=== PATIENT | female | born 1990 | race Caucasian/White ===

== ENCOUNTER 2016-10-24 13:41 | Emergency (ER) | payer BC ==
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
[2016-10-24 14:01] VITALS: BP 132/88; PULSE 76; TEMP 97.9; BMI 48.1
--- NOTE | 2016-10-24 14:34 | DIRPT ---
CLINICAL DATA: Injury. Pain. EXAM: RIGHT WRIST - COMPLETE 3+ VIEW COMPARISON: None. FINDINGS: There is no evidence of fracture or dislocation. There is no evidence of arthropathy or other focal bone abnormality. Soft tissues are unremarkable. IMPRESSION: Negative. Electronically Signed By: Binu Álvarez M.D. On: 10/24/2016 14:32
== END 2016-10-24 15:36 | disposition home or self-care (01) ==
LOC: EDMC 13:41
DX: S60.211A Contusion of right wrist, initial encounter (principal); W22.09XA Striking against other stationary object, initial encounter; Y93.89 Activity, other specified; Y92.512 Supermarket, store or market as the place of occurrence of the external cause
CPT/HCPCS: 81025; 99282

== ENCOUNTER 2016-11-11 07:45 | Emergency (ER) | payer BC ==
[2016-11-11 07:54] VITALS: BP 144/96; PULSE 90; TEMP 98.1; BMI 48.2
--- NOTE | 2016-11-11 08:03 | EDPRACDOC ---
- General Information Chief Complaint: Wound Mode of Arrival:: Car Home Medications: Home Medications Ciprofloxacin HCl [Cipro] 500 mg PO BID #20 tab 09/04/16 Hydrocodone Bit/Acetaminophen [Hydrocodon-Acetaminophen 5-325] 1 tab PO Q6H PRN #7 tab 09/04/16 Ondansetron [Zofran Odt] 4 mg PO Q6H #14 tab.rapdis 09/04/16 Allergies/Adverse Reactions: Allergies Allergy/AdvReac Type Severity Reaction Status Date / Time peach Allergy Anaphylaxis Verified 11/11/16 07:48 * tomato Allergy Anaphylaxis Verified 11/11/16 07:48 * watermelon Allergy Anaphylaxis Verified 11/11/16 07:48 * - History of Present Illness Onset: 729 HPI: LAC TO THUMB - Tetanus Status Last Tetanus: No (PT REFUSES) - Pain Pain Severity: None Bleeding: Reports: Controlled Associated Signs & Symptoms: Reports: None ED Past Medical History - History Reviewed Yes Nurses notes reviewed and agree except as marked - Patient Medical History Cardiac History: Reports: Hypertension ( RELATED) GI/ History: Reports: Gastroesophageal Reflux Psychological History: Denies: Depression Systemic History: Reports: Anemia ( RELATED), Diabetes (GESTATIONAL). Denies: Cancer, Lupus Additional Past Medical History: Gestational Diabetes - Family Medical History Reports: Hypertension, Diabetes, Cancer. Denies: Stroke, Cardiac Disorders - Social Medical History Smoking Status: Never smoker EDM Review of Systems - Review of Systems ROS Negative Except as Marked: Yes All systems reviewed and were negative except as marked - Physical Exam Constitutional: No apparent distress Oriented to: Time, Person, Place Last recorded Vital Signs: Last Vital Signs Temp 98.1 F 11/11/16 07:48 Pulse 90 11/11/16 07:48 Resp 18 11/11/16 07:48 BP 144/96 11/11/16 07:48 Pulse Ox 99 11/11/16 07:48 Oxygen Pulse Oxygen Saturation 99 O2 Device Room Air Oxygen Flow Rate Fraction of Inspired Oxygen ( FIO2) - Musculoskeletal Back: Normal Extremities: Normal - Integumentary Skin: Other (1CM SUPERFICIAL LAC TO DISTAL PHALANX OF THUMB PALMAR SURFACE) Lymphatics: Normal - Neurologic Memory Impaired: Normal Motor Function: Normal Cranial Nerve: Normal Cerebellar: Normal ED Procedures - Suture/Laceration Suture #1 Right Hand Wound Length (cm): 1 Wound's Depth, Shape: superficial Wound Explored: clean Betadine Prep?: No Wound Repaired With: Dermabond Decision Time to Discharge: 08:15 - Departure Yes I personally saw and evaluated the patient. Disposition: Home Condition: Good Final Diagnosis: 1CM THUMB LAC-SIMPLE Instructions: Laceration (ED) Education/Counseling Given To: Patient Education/Counseling Given Regarding: Diagnosis, Treatment, Prognosis Referrals: Nehemiah Marrero MD [Primary Care Provider] - One Week Prescriptions: No Action Ciprofloxacin HCl [Cipro] 500 mg PO BID #20 tab Hydrocodone Bit/Acetaminophen [Hydrocodon-Acetaminophen 5-325] 1 tab PO Q6H PRN #7 tab PRN Reason: Pain Ondansetron [Zofran Odt] 4 mg PO Q6H #14 tab.[email or web address]
[2016-11-11] MEDS ORDERED: 2-OCTYL CYANOACRYLATE PEN TOP ONE ×2 (08:04→08:07)
== END 2016-11-11 08:17 | disposition home or self-care (01) ==
LOC: ED 07:45
DX: S61.011A Laceration without foreign body of right thumb without damage to nail, initial encounter (principal); X58.XXXA Exposure to other specified factors, initial encounter; Y93.9 Activity, unspecified
CPT/HCPCS: 12001; 99282; J3490